=== PATIENT | male | born 2000 | race Caucasian/White ===

== ENCOUNTER 2022-10-08 18:59 | Emergency (ER) | payer SELFPAY ==
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
[2022-10-08 19:07] VITALS: BP 163/106; PULSE 105; RESP 16; TEMP 37.2; O2SAT 94
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
[2022-10-08] MEDS: HYDROcodone-acetaminophen 5-325 mg Tablet 1 TAB PO (20:00)
[2022-10-08 20:31] VITALS: BP 178/91; PULSE 95; RESP 18; O2SAT 98
--- NOTE | 2022-10-09 09:32 | DCPLANNER ---
Addendum entered by Leticia Gaming 10/14/22 09:03: Patient had a follow up appointment scheduled with ortho - patient did attend appointment Addendum entered by Leticia Gaming 10/13/22 09:48: Patient has a follow up appointment scheduled for Thursday, October 13, [address]22 at 3:[address] Schaffer at ortho. Original Note: scheduling manager had message to schedule a follow up appointment for patient with ortho. scheduling manager sent patients information to the front office staff at ortho. Patients information will be printed and reviewed. Clinic will call patient with appointment information.
== END 2022-10-08 20:34 | disposition home or self-care (01) ==
PROVIDERS: Emergency Provider Emergency Medicine; PCP Nurse Practitioner Family
DX: S49.91XA Unspecified injury of right shoulder and upper arm, initial encounter (principal); V86.55XA Driver of 3- or 4- wheeled all-terrain vehicle (ATV) injured in nontraffic accident, initial encounter
CPT/HCPCS: 73030; 99283

== ENCOUNTER → 2022-10-13 15:50 | Outpatient (BNVA) | payer SELFPAY | PROVIDERS: PCP Nurse Practitioner Family; Referring Provider Emergency Medicine; Visit Provider Orthopaedic Surgery | DX: S42.254A Nondisplaced fracture of greater tuberosity of right humerus, initial encounter for closed fracture (principal); V86.35XA Unspecified occupant of 3- or 4- wheeled all-terrain vehicle (ATV) injured in traffic accident, initial encounter | CPT/HCPCS: 73030 ==

== ENCOUNTER → 2022-11-11 10:33 | Outpatient (BNVA) | payer SELFPAY | PROVIDERS: PCP Nurse Practitioner Family; Visit Provider Orthopaedic Surgery | DX: S42.251A Displaced fracture of greater tuberosity of right humerus, initial encounter for closed fracture (principal); X58.XXXA Exposure to other specified factors, initial encounter | CPT/HCPCS: 73030 ==